=== PATIENT | male | born 1995 | race Caucasian/White ===

== ENCOUNTER 2023-03-01 11:21 | Outpatient (CLI) | payer OTHER, SELFPAY | END 2023-03-01 11:22 | disposition home or self-care (01) | PROVIDERS: PCP Family Medicine; Visit Provider Family Medicine | DX: Z00.00 Encounter for general adult medical examination without abnormal findings (principal); R03.0 Elevated blood-pressure reading, without diagnosis of hypertension; E78.00 Pure hypercholesterolemia, unspecified | CPT/HCPCS: 80053; 80061 ==

== ENCOUNTER 2024-03-20 05:00 | Emergency (ER) | payer OTHER, SELFPAY ==
[2024-03-20 05:26] VITALS: BP 125/88; PULSE 70; RESP 20; TEMP 36.4; O2SAT 99; BMI 31.2
[2024-03-20 05:45] VITALS: TEMP 36.4
[2024-03-20] MEDS: ACETAMINOPHEN 500 MG TABLET 1000 MG PO (05:45)
[2024-03-20] MEDS: KETOROLAC 30 MG/ML inj IM (05:45)
[2024-03-20 05:52] VITALS: BP 142/90; PULSE 62; RESP 20; TEMP 36.7; O2SAT 100
[2024-03-20 05:53] VITALS: O2SAT 100
[2024-03-20 05:55] LABS: Basophils Absolute Auto 0.01 K/uL (0.00-0.30); Basophils Percent Auto 0.1 % (0.0-3.0); Eosinophils Absolute Auto 0.05 K/uL (0.00-0.50); Eosinophils Percent Auto 0.5 % (0.0-7.0); Hematocrit 43.2 % (37.0-53.0); Hemoglobin* 15.4 gm/dL (13.5-17.5); Immature Granulocytes Abs Auto 0.01 K/uL (0.00-0.30); Immature Granulocytes Pct Auto 0.1 %; Lymphocytes Absolute Auto 2.61 K/uL (0.90-2.90); Lymphocytes Percent Auto 23.9 % (20-44); Mean Corpuscular HGB Conc 36 gm/dL (32-36); Mean Corpuscular Hemoglobin 30 pg (26-34); Mean Corpuscular Volume 83 fL (80-100); Monocytes Percent Auto 5.3 % (0.0-11.0); Neutrophils Absolute Auto 7.68 K/uL (1.7-7.0); Neutrophils Percent Auto 70.1 % (42.0-72.0); Platelet Count* 201 K/uL (140-440); RDW Coefficient of Variation % 11.7 % (11.5-15.5); Red Blood Count 5.18 m/uL (4.30-5.90); White Blood Count* 10.94 K/uL (4.50-11.00)
[2024-03-20 05:56] LABS: Slide Review Reflex No
[2024-03-20 06:03] VITALS: BP 130/85; PULSE 64; RESP 16; O2SAT 100
[2024-03-20 06:08] LABS: Chloride* 101 mmol/L (96-114); Potassium* 3.7 mmol/L (3.6-5.1); Sodium* 137 mmol/L (135-149)
[2024-03-20 06:11] LABS: Anion Gap 13 mEq/L (7-15); Blood Urea Nitrogen* 15 mg/dL (5-24); Carbon Dioxide* 23 mmol/L (20-32); Est. Creatinine Clearance* 118.56; Estimated Glomerular Filt Rate 104 ml/min; Glucose* 119 mg/dL (60-115)
[2024-03-20 06:12] LABS: Calcium* 9.7 mg/dL (8.4-10.6)
[2024-03-20 06:16] LABS: D Dimer Quantitative* 0.25 ug/ml (0.00-0.50)
[2024-03-20 06:22] VITALS: BP 134/104; PULSE 69; RESP 16; O2SAT 100
[2024-03-20 06:24] LABS: Troponin I* < 0.01 ng/mL (0.01-0.04)
--- NOTE | 2024-03-20 06:38 | ED_ITS ---
HPI - Chest Pain General Date Seen: 03/20/24 Chief Complaint: Chest Pain Stated Complaint: back/chest pain - sweating Time Seen by Provider: 03/20/24 05:27 Source: patient and family Mode of arrival: ambulatory Limitations: no limitations History of Present Illness HPI narrative: 28-year-old male with no significant health history who comes in after waking up at 3:30 a.m. with back pain that radiates around to the front. He denies any recent injury. No pain with deep inspiration. He has no history of exertional chest pain. He has had some mildly elevated blood pressures and borderline lipids in the past. No significant heart history in the family. He is not a smoker. He is not diabetic. He tried a topical patch on his upper back and when that did not help he had his parents bring him to the emergency department. Related Data Previous Rx's ?Medication ?Instructions ?Recorded blood pressure test kit-large #1 ea 05/03/23 cyclobenzaprine 10 mg tablet 10 mg PO Q8H PRN muscle spasm #20 03/20/24 tabs Allergies Allergy/AdvReac Type Severity Reaction Status Date / Time No Known Drug Allergies Allergy Verified 08/30/23 07:51 Review of Systems Narrative Review of systems is outlined above otherwise noted to be negative. [facility] Medical History (Updated 03/20/24 @ 06:37 by Cain Zazueta MD) Obesity (BMI 30.0-34.9) ?E66.9 - Obesity, unspecified (ICD-10) Elevated blood pressure reading in office without diagnosis of hypertension ?R03.0 - Elevated blood-pressure reading, without diagnosis of hypertension (ICD-10) Hypercholesteremia ?E78.00 - Pure hypercholesterolemia, unspecified (ICD-10) Family History (Updated 02/23/23 @ 08:03 by Lina Augustin ~ PSR) Other High blood pressure Social History Smoking Status: Never smoker Second hand tobacco smoke exposure: No How often do you have a drink containing alcohol: never AUDIT-C Alcohol total score: 0 Non-prescribed substance use: denies use Little interest or pleasure in doing things: not at all Feeling down, depressed, or hopeless: not at all Exam Narrative Exam Narrative: Vitals noted. HEENT: Conjunctiva clear. Neck is supple without adenopathy, thyromegaly, carotid bruit. Lungs: Clear to auscultation in all mello. No wheezes, rales, rhonchi. Heart: Regular rate and rhythm without murmur. Abdomen: Soft and nontender. No guarding, rigidity, rebound. Bowel sounds are normal. No palpable masses. Extremities: No cyanosis or edema. Good distal pulses. He has some mild muscular upper back pain. No palpable spasms. No rib tenderness. Skin: No abnormalities noted of the exposed skin. He is diaphoretic. Neurologic: Awake, alert, fully oriented. Neurologic exam is nonfocal. Const Vital Signs, click to edit/add: Vital Signs - 24 hr 03/20/24 05:26 03/20/24 05:45 03/20/24 05:45 Temperature 97.6 F 97.6 F 97.6 F Pulse Rate Pulse Rate [Pulse Oximeter] 70 Respiratory Rate 20 Blood Pressure Blood Pressure [Right Upper Arm] 125/88 Pulse Oximetry 99 Oxygen Delivery Method Room Air 03/20/24 05:52 03/20/24 05:53 03/20/24 06:03 Temperature 98.0 F Pulse Rate 62 64 Pulse Rate [Pulse Oximeter] Respiratory Rate 20 16 Blood Pressure 142/90 H 130/85 Blood Pressure [Right Upper Arm] Pulse Oximetry 100 100 100 Oxygen Delivery Method 03/20/24 06:22 Temperature Pulse Rate 69 Pulse Rate [Pulse Oximeter] Respiratory Rate 16 Blood Pressure 134/104 H Blood Pressure [Right Upper Arm] Pulse Oximetry 100 Oxygen Delivery Method Course Course ED Course: Patient was seen and examined. EKG shows normal sinus rhythm with a rate in the 60s. No acute ST or T-wave changes. CBC and BMP are normal. D-dimer is negative. Troponin is negative. He is given Toradol 30 mg IM and Tylenol 1000 mg orally with good improvement in his symptoms. Vital Signs Vital signs: Initial Vital Signs Respiratory Effort Normal, Spontaneous, Non-Labored 03/20/24 05:25 Respiratory Depth Normal 03/20/24 05:25 Respiratory Pattern Normal 03/20/24 05:25 Vital Signs Temperature 97.6 F 03/20/24 05:26 Pulse Rate 70 03/20/24 05:26 Respiratory Rate 20 03/20/24 05:26 Blood Pressure 125/88 03/20/24 05:26 Pulse Oximetry 99 03/20/24 05:26 Oxygen Delivery Method Room Air 03/20/24 05:26 Temperature 98.0 F 03/20/24 05:52 Pulse Rate 69 03/20/24 06:22 Respiratory Rate 16 03/20/24 06:22 Blood Pressure 134/104 H 03/20/24 06:22 Pulse Oximetry 100 03/20/24 06:22 Oxygen Delivery Method Room Air 03/20/24 05:26 Medications Administered Medications: Discontinued Medications Generic Name Dose Route Start Last Admin Trade Name Bebe PRN Reason Stop Dose Admin Acetaminophen 1,000 mg 03/20/24 05:39 03/20/24 05:45 Acetaminophen 500 Mg Tablet PO 03/20/24 05:40 1,000 mg ONCE ONE Administration Ketorolac Tromethamine 30 mg 03/20/24 05:39 03/20/24 05:45 Ketorolac 30 Mg/Ml Inj IM 03/20/24 05:40 30 mg ONCE ONE Administration MDM - Chest Pain Lab Data Labs: Lab Results 03/20/24 Range/Units 05:48 WBC 10.94 (4.50-11.00) K/uL RBC 5.18 (4.30-5.90) m/uL Hgb 15.4 (13.5-17.5) gm/dL Hct 43.2 (37.0-53.0) % MCV 83 (80-100) fL MCH 30 (26-34) pg MCHC 36 (32-36) gm/dL RDW Coeff of Mariela 11.7 (11.5-15.5) % Plt Count 201 (140-440) K/uL Neut % (Auto) 70.1 (42.0-72.0) % Lymph % (Auto) 23.9 (20-44) % [place] % (Auto) 5.3 (0.0-11.0) % Eos % (Auto) 0.5 (0.0-7.0) % Baso % (Auto) 0.1 (0.0-3.0) % Neut # (Auto) 7.68 H (1.7-7.0) K/uL Lymph # (Auto) 2.61 (0.90-2.90) K/uL [place] # (Auto) 0.60 (0.00-0.90) K/UL Eos # (Auto) 0.05 (0.00-0.50) K/uL Baso # (Auto) 0.01 (0.00-0.30) K/uL Abs Immat Gran (auto) 0.01 (0.00-0.30) K/uL Imm/Tot Granulo (auto) 0.1 % D-Dimer Quant (PE/DVT) 0.25 (0.00-0.50) ug/ml Sodium 137 (135-149) mmol/L Potassium 3.7 (3.6-5.1) mmol/L Chloride 101 (96-114) mmol/L Carbon Dioxide 23 (20-32) mmol/L Anion Gap 13 (7-15) mEq/L BUN 15 (5-24) mg/dL Creatinine 1.0 (0.5-1.5) mg/dL Estimated Creat Clear 118.56 Estimated GFR 104 ml/min Glucose 119 H (60-115) mg/dL Calcium 9.7 (8.4-10.6) mg/dL Troponin I < 0.01 L (0.01-0.04) ng/mL Discharge Plan Discharge Clinical Impression: Acute upper back pain, Chest pain Patient Disposition: Home, Self-Care Condition: Improved Additional Instructions: Heat in the morning, ice after activities, Tylenol 1000 mg every 6 hours as needed, ibuprofen 800 mg every 8 hours as needed, Flexeril 10 mg 3 times daily as needed for spasms. Follow-up in the clinic if symptoms are not improving over the next 3-5 days. Prescriptions: New cyclobenzaprine 10 mg tablet 10 mg PO Q8H PRN (Reason: muscle spasm) Qty: 20 0RF No Action (DME) blood pressure test kit-large Kit See Rx Instructions .Route Qty: 1 0RF Rx Instructions: As directed Follow Up/Referrals: Hal Maya MD [Primary Care Provider] - Stand [facility] Info Inst[facility]
== END 2024-03-20 06:41 | disposition home or self-care (01) ==
PROVIDERS: Emergency Provider Family Medicine; PCP Family Medicine
DX: M54.89 Other dorsalgia (principal); R07.9 Chest pain, unspecified
CPT/HCPCS: 36415; 80048; 84484; 85025; 85379; 93005; 94761; 96372; 99282; 99284; A9270; J1885